=== PATIENT | female | born 1970 | race Caucasian/White ===

== ENCOUNTER 2024-10-28 12:20 | Inpatient (IN) | payer BC ==
[~2024-10-28] VITALS: Ht 157.5 cm; Wt 81.8 kg
[2024-10-28 13:06] LABS: BASOPHILS % (AUTO) 0.1 % (0-1); EOSINOPHILS % (AUTO) 0.2 % (0-6); HEMATOCRIT 47.1 % (35.0-45.0); HEMOGLOBIN 15.3 g/dl (12.0-16.0); LYMPHOCYTES # (AUTO) 0.3 X10'3 (1.1-4.8); LYMPHOCYTES % (AUTO) 3.7 % (21-51); MEAN CORPUSCULAR HEMOGLOBIN 30.1 PG (27.0-31.0); MEAN CORPUSCULAR HGB CONC 32.5 g/dL (33.0-36.5); MEAN CORPUSCULAR VOLUME 92.6 FL (78-98); MEAN PLATELET VOLUME 6.6 FL (7.4-10.4); MONOCYTES # (AUTO) 0.3 X10'3 (0-0.9); MONOCYTES % (AUTO) 4.2 % (2-12); NEUTROPHILS # (AUTO) 7.5 X10'3 (1.8-7.7); NEUTROPHILS % (AUTO) 91.8 % (42-75); PLATELET COUNT 233 X10'3 (140-440); RED BLOOD COUNT 5.08 X10'6 (4.20-5.60); RED CELL DISTRIBUTION WIDTH 13.7 % (11.5-14.5); WHITE BLOOD COUNT 8.2 X10'3 (4.5-11.0)
[2024-10-28 13:40] LABS: ALANINE AMINOTRANSFERASE 31 U/L (12-78); ALBUMIN 3.6 G/DL (3.4-5.0); ALBUMIN/GLOBULIN RATIO 0.8 (1.1-1.5); ALKALINE PHOSPHATASE 122 IU/L (46-116); ANION GAP 8 (8-16); ASPARTATE AMINO TRANSFERASE 27 U/L (10-37); BILIRUBIN,TOTAL 0.5 MG/DL (0.1-1.0); BLOOD UREA NITROGEN 16 MG/DL (7-18); BUN/CREATININE RATIO 16.3 (10.0-20.0); CALCIUM 9.1 MG/DL (8.5-10.1); CHLORIDE 107 MMOL/L (99-107); CREATININE 0.98 MG/DL (0.40-0.90); GLUCOSE 121 MG/DL (70-104); POTASSIUM 4.4 MMOL/L (3.5-5.1); PRO BRAIN NATRIURETIC PEPTIDE 154 PG/ML (0-125); SODIUM 142 MMOL/L (135-145); TOTAL CARBON DIOXIDE 27.2 MMOL/L (24-32); TOTAL PROTEIN 8.4 G/DL (6.4-8.2); eCRCL 51 ML/MIN; eGFR 59 ML/MIN
[2024-10-28] MEDS: CefTRIAXone 2gm/D5W 50ml BAG 50 ML IV ONE (13:48)
[2024-10-28] MEDS: normal saline 1000ML IV soln IV ONE ×2 (13:48→15:30)
[2024-10-28] MEDS: ondansetron/PF 4mg/2ml inj IV ONE (13:48)
[2024-10-28] MEDS: azithromycin/NS 500mg/250ml 250 ML IV ONE (14:19)
[2024-10-28] MEDS ORDERED: potassium Cl 40MEQ/1/2NS 520ml 520 ML IV PRN (15:30)
[2024-10-28] MEDS ORDERED: magnesium Cl slow-release 64mg tablet PO PRN (15:30)
[2024-10-28] MEDS ORDERED: morphine 2 MG/ML inj. syringe IV PRN (15:30)
[2024-10-28] MEDS ORDERED: magnesium hydroxide 30ml (MOM) UD suspension PO PRN (15:30)
[2024-10-28] MEDS ORDERED: potassium Cl 20 mEq SR tablet PO PRN (15:30)
[2024-10-28] MEDS: normal saline 1000ml 1,000 ML IV SCH (15:30)
[2024-10-28] MEDS ORDERED: magnesium sulf-water 2g/50mL 50 ML IV PRN (15:30)
[2024-10-28] MEDS ORDERED: magnesium sulf-water 4G/100mL 100 ML IV PRN (15:30)
[2024-10-28] MEDS ORDERED: ondansetron/PF 4mg/2ml inj IV PRN (15:30)
[2024-10-28 16:12] LABS: MAGNESIUM 1.9 MG/DL (1.5-2.4)
[2024-10-28] MEDS: methylPREDNISolone sod succ 125mg/2ml vial IV ONE (16:30)
[2024-10-28 16:33] LABS: HEMOGLOBIN A1C 5.7 % (4.5-6.2)
[2024-10-28 16:33] LABS: BILIRUBIN,URINE NEGATIVE (Neg); CLARITY,URINE SLIGHTLY CLOUDY (Clear); COLOR,URINE YELLOW (Yellow); GLUCOSE, URINE NEGATIVE (Neg); KETONES,URINE TRACE mg/dl (Neg); LEUKOCYTE ESTERASE ,URINE NEGATIVE (Neg); NITRITES, URINE NEGATIVE (Neg); OCCULT BLOOD,URINE NEGATIVE (Neg); PROTEIN,URINE NEGATIVE (Neg); UROBILINOGEN,URINE 0.2 E.U/dL (0.2-1.0)
[2024-10-28 16:42] LABS: UA COLLECTION TYPE VOIDED
[2024-10-28 16:48] LABS: BACTERIA,URINE 1+ /HPF (Neg); RBC,URINE NONE SEEN /HPF (0-2); SQUAMOUS EPITHELIAL CELL,UR FEW /LPF (FEW); WBC,URINE 0-4 /HPF (0-4)
[2024-10-28 17:18] LABS: D-DIMER 2.03 MG/L FEU (0-0.50)
[2024-10-28 17:40] LABS: THYROID STIMULATING HORMONE 0.78 ulU/ml (0.34-4.50)
[2024-10-28] MEDS: ipratropium/albuterol 3ml nebule NEB PRN (17:42)
[2024-10-28 17:45] VITALS: PULSE 123; RESP 16; O2SAT 97
[2024-10-28] MEDS: ipratropium/albuterol 3ml nebule NEB SCH (17:45)
[2024-10-28 17:50] VITALS: PULSE 130; RESP 20
[2024-10-28] MEDS ORDERED: iohexol 350MG/ML 100ml bottle IV ONE (18:22)
[2024-10-28] MEDS ORDERED: iohexol 350 MG/ML 50ML vial IV ONE (18:54)
[2024-10-28] MEDS: diltiazem 5mg/ml 5ml inj. IV ONE (19:45)
[2024-10-28 19:54] LABS: ABG BASE EXCESS -3.9 mmol/L (-2.0-3.0); ABG HCO3 20.5 mmol/L (21.0-28.0); ABG OXYGEN SATURATION 90.9 % (94.0-98.0); ABG PCO2 (T) 35.2 mmHg (32.0-45.0); ABG PH (T) 7.382 (7.350-7.450); ABG PO2 (T) 56.7 mmHg (83.0-108.0); ALLEN'S TEST POSITIVE; FCOHb 0.2 % (0.5-1.5); FHHb 9.1 % (0.0-5.0); FLOW 3 L/min; FMetHb 0.1 % (0.0-1.5); FO2Hb 90.6 % (94.0-98.0); MODE NASAL CANNULA; PATIENT TEMPERATURE 36.9; TOTAL HEMOGLOBIN 13.6 G/dl (12.0-16.0)
[2024-10-28 20:00] VITALS: BP_SYST 115; BP_SYST 117; BP_SYST 123; BP_DIAS 73; BP_DIAS 75; BP_DIAS 78; PULSE 78; PULSE 92; PULSE 96
[2024-10-28] MEDS: docusate sod 100mg capsule PO SCH (20:00)
[2024-10-28] MEDS: K and/or MAG REPLACEMENT MC SCH (20:00)
[2024-10-28] MEDS: diltiazem-NS 100mg/100ml 100 ML IV SCH (20:15)
[2024-10-28] MEDS: methylPREDNISolone sod succ/PF 40mg inj. IV SCH (21:21)
[2024-10-28] MEDS: heparin, porcine 5000 units/ml vial SQ SCH (21:21)
[2024-10-28 23:30] VITALS: BP 115/71; PULSE 110
[2024-10-29] VITALS (19 sets, daily range): BP systolic 87–165; BP diastolic 56–94; PULSE 81–128; RESP 16–22; TEMP 97.1–98.3; O2SAT 93–98
[2024-10-29] MEDS: acetaminophen 325mg tablet PO PRN (01:13)
[2024-10-29] MEDS ORDERED: TIOT4MIS5 INH (06:28)
[2024-10-29 07:13] LABS: BASOPHILS % (AUTO) 0.1 % (0-1); EOSINOPHILS % (AUTO) 0 % (0-6); HEMATOCRIT 36.9 % (35.0-45.0); HEMOGLOBIN 12.4 g/dl (12.0-16.0); LYMPHOCYTES # (AUTO) 0.5 X10'3 (1.1-4.8); LYMPHOCYTES % (AUTO) 4.7 % (21-51); MEAN CORPUSCULAR HEMOGLOBIN 30.3 PG (27.0-31.0); MEAN CORPUSCULAR HGB CONC 33.7 g/dL (33.0-36.5); MEAN CORPUSCULAR VOLUME 89.8 FL (78-98); MEAN PLATELET VOLUME 6.8 FL (7.4-10.4); MONOCYTES # (AUTO) 0.4 X10'3 (0-0.9); MONOCYTES % (AUTO) 3.5 % (2-12); NEUTROPHILS # (AUTO) 10.1 X10'3 (1.8-7.7); NEUTROPHILS % (AUTO) 91.7 % (42-75); PLATELET COUNT 197 X10'3 (140-440); RED CELL DISTRIBUTION WIDTH 13.2 % (11.5-14.5)
[2024-10-29 07:43] LABS: ALANINE AMINOTRANSFERASE 26 U/L (12-78); ALBUMIN 2.5 G/DL (3.4-5.0); ALBUMIN/GLOBULIN RATIO 0.7 (1.1-1.5); ALKALINE PHOSPHATASE 81 IU/L (46-116); ANION GAP 7 (8-16); ASPARTATE AMINO TRANSFERASE 23 U/L (10-37); BILIRUBIN,TOTAL 0.3 MG/DL (0.1-1.0); BLOOD UREA NITROGEN 10 MG/DL (7-18); BUN/CREATININE RATIO 11.5 (10.0-20.0); CHLORIDE 110 MMOL/L (99-107); CHOL/HDL RATIO 1.8 (0.00-4.99); CHOLESTEROL 132 MG/DL (0-200); CREATININE 0.87 MG/DL (0.40-0.90); GLUCOSE 149 MG/DL (70-104); HDL CHOLESTEROL 72 MG/DL (35-60); LDL CHOLESTEROL 55 MG/DL (50-100); MAGNESIUM 1.7 MG/DL (1.5-2.4); POTASSIUM 3.2 MMOL/L (3.5-5.1); SODIUM 141 MMOL/L (135-145); TOTAL CARBON DIOXIDE 24.2 MMOL/L (24-32); TOTAL PROTEIN 6.2 G/DL (6.4-8.2); TRIGLYCERIDES 44 MG/DL (20-135); eCRCL 58 ML/MIN; eGFR 68 ML/MIN
[2024-10-29] MEDS: azithromycin/NS 500mg/250ml 250 ML IV SCH (10:18)
[2024-10-29] MEDS: CefTRIAXone/D5W-Rocephin 1gm 50 ML IV SCH (10:18)
[2024-10-29] MEDS: HEPARIN DRIP DVT/PE -**PHARMACIST TO DOSE IV ONE (10:25)
[2024-10-29] MEDS: HEPARIN DRIP INITAL BOLUS --- DO NOT GIVE/ORDER MC ONE (10:40)
[2024-10-29] MEDS ORDERED: guaiFENesin/DM 10ml UD oral syrup PO PRN (10:40)
[2024-10-29] MEDS: MESSAGE TO NURSING IV ONE ×2 (11:05→20:58)
[2024-10-29 12:02] LABS: APTT 32 SECONDS (22-32)
[2024-10-29] MEDS: potassium Cl 20 mEq SR tablet PO PRN (12:49)
[2024-10-29] MEDS: heparin 25,000 UNIT/250ml bag 250 ML IV PRN (13:19)
[2024-10-29] MEDS: methylPREDNISolone sod succ/PF 40mg inj. IV SCH (14:29)
[2024-10-29] MEDS: LORazepam 0.5 MG tablet PO ONE (18:08)
[2024-10-29] MEDS: heparin 10,000 units/1 ML INJ IV PRN (20:54)
[2024-10-29] MEDS: diltiazem 30mg tablet PO ONE ×2 (21:38→22:41)
[2024-10-30] VITALS (12 sets, daily range): BP systolic 123–151; BP diastolic 76–92; PULSE 79–121; RESP 12–20; TEMP 96.9–98.2; O2SAT 91–94
[2024-10-30 03:39] LABS: BASOPHILS % (AUTO) 0.2 % (0-1); EOSINOPHILS % (AUTO) 0 % (0-6); HEMATOCRIT 35.1 % (35.0-45.0); HEMOGLOBIN 11.8 g/dl (12.0-16.0); LYMPHOCYTES # (AUTO) 0.6 X10'3 (1.1-4.8); LYMPHOCYTES % (AUTO) 4.7 % (21-51); MEAN CORPUSCULAR HGB CONC 33.7 g/dL (33.0-36.5); MEAN CORPUSCULAR VOLUME 89.1 FL (78-98); MEAN PLATELET VOLUME 6.7 FL (7.4-10.4); MONOCYTES # (AUTO) 0.7 X10'3 (0-0.9); MONOCYTES % (AUTO) 4.8 % (2-12); NEUTROPHILS # (AUTO) 12.4 X10'3 (1.8-7.7); NEUTROPHILS % (AUTO) 90.3 % (42-75); PLATELET COUNT 190 X10'3 (140-440); RED BLOOD COUNT 3.94 X10'6 (4.20-5.60); RED CELL DISTRIBUTION WIDTH 13.2 % (11.5-14.5); WHITE BLOOD COUNT 13.7 X10'3 (4.5-11.0)
[2024-10-30 03:57] LABS: ALANINE AMINOTRANSFERASE 30 U/L (12-78); ALBUMIN 2.5 G/DL (3.4-5.0); ALBUMIN/GLOBULIN RATIO 0.6 (1.1-1.5); ALKALINE PHOSPHATASE 81 IU/L (46-116); ANION GAP 6 (8-16); ASPARTATE AMINO TRANSFERASE 19 U/L (10-37); BILIRUBIN,TOTAL 0.2 MG/DL (0.1-1.0); BLOOD UREA NITROGEN 12 MG/DL (7-18); BUN/CREATININE RATIO 14.1 (10.0-20.0); CALCIUM 8.6 MG/DL (8.5-10.1); CHLORIDE 111 MMOL/L (99-107); CREATININE 0.85 MG/DL (0.40-0.90); GLUCOSE 163 MG/DL (70-104); MAGNESIUM 1.9 MG/DL (1.5-2.4); SODIUM 144 MMOL/L (135-145); TOTAL CARBON DIOXIDE 26.6 MMOL/L (24-32); TOTAL PROTEIN 6.5 G/DL (6.4-8.2); eCRCL 59 ML/MIN; eGFR 69 ML/MIN
[2024-10-30] MEDS: MESSAGE TO NURSING IV ONE ×4 (04:51→23:53)
[2024-10-30] MEDS: metoprolol succinate 25mg (24-HOUR) SR. Tablet PO SCH (10:49)
[2024-10-30] MEDS: levetiracetam 250mg tablet PO ONE (11:43)
[2024-10-30] MEDS ORDERED: methylPREDNISolone sod succ/PF 40mg inj. IV SCH (14:00)
[2024-10-30] MEDS: metoprolol tartrate 1mg/ml inj IV ONE (16:02)
[2024-10-30] MEDS: levetiracetam 250mg tablet PO SCH (19:27)
[2024-10-30] MEDS: methylPREDNISolone sod succ/PF 40mg inj. IV SCH (19:28)
[2024-10-31] VITALS (16 sets, daily range): BP systolic 132–170; BP diastolic 74–102; PULSE 63–94; RESP 15–20; TEMP 97–98.3; O2SAT 91–94
[2024-10-31 07:00] LABS: BASOPHILS % (AUTO) 0 % (0-1); EOSINOPHILS % (AUTO) 0 % (0-6); HEMATOCRIT 33.2 % (35.0-45.0); HEMOGLOBIN 11.2 g/dl (12.0-16.0); LYMPHOCYTES # (AUTO) 0.8 X10'3 (1.1-4.8); LYMPHOCYTES % (AUTO) 7.3 % (21-51); MEAN CORPUSCULAR HEMOGLOBIN 30.1 PG (27.0-31.0); MEAN CORPUSCULAR HGB CONC 33.8 g/dL (33.0-36.5); MEAN CORPUSCULAR VOLUME 88.9 FL (78-98); MONOCYTES # (AUTO) 0.6 X10'3 (0-0.9); MONOCYTES % (AUTO) 5.5 % (2-12); NEUTROPHILS # (AUTO) 9.9 X10'3 (1.8-7.7); NEUTROPHILS % (AUTO) 87.2 % (42-75); PLATELET COUNT 188 X10'3 (140-440); RED BLOOD COUNT 3.73 X10'6 (4.20-5.60); RED CELL DISTRIBUTION WIDTH 13.3 % (11.5-14.5); WHITE BLOOD COUNT 11.4 X10'3 (4.5-11.0)
[2024-10-31 07:24] LABS: ALANINE AMINOTRANSFERASE 40 U/L (12-78); ALBUMIN 2.3 G/DL (3.4-5.0); ALBUMIN/GLOBULIN RATIO 0.7 (1.1-1.5); ALKALINE PHOSPHATASE 72 IU/L (46-116); ANION GAP 9 (8-16); ASPARTATE AMINO TRANSFERASE 21 U/L (10-37); BILIRUBIN,TOTAL 0.3 MG/DL (0.1-1.0); BLOOD UREA NITROGEN 17 MG/DL (7-18); BUN/CREATININE RATIO 20.7 (10.0-20.0); CALCIUM 8.5 MG/DL (8.5-10.1); CHLORIDE 110 MMOL/L (99-107); CREATININE 0.82 MG/DL (0.40-0.90); GLUCOSE 146 MG/DL (70-104); MAGNESIUM 2.1 MG/DL (1.5-2.4); POTASSIUM 3.8 MMOL/L (3.5-5.1); SODIUM 145 MMOL/L (135-145); TOTAL CARBON DIOXIDE 25.8 MMOL/L (24-32); TOTAL PROTEIN 5.8 G/DL (6.4-8.2); eCRCL 61 ML/MIN; eGFR 72 ML/MIN
[2024-10-31] MEDS: TIOTROPIUM BROMIDE PO SCH (08:00)
[2024-10-31] MEDS: metoprolol succinate 25mg (24-HOUR) SR. Tablet PO SCH (08:13)
[2024-10-31] MEDS: MESSAGE TO NURSING IV ONE (08:28)
[2024-10-31] MEDS: amLODIPine 5mg tablet PO SCH (13:33)
[2024-10-31] MEDS: clindamycin 300mg/D5W 50mL 50 ML IV SCH (14:42)
[2024-10-31] MEDS: apixaban 5mg tablet PO SCH (14:58)
[2024-10-31] MEDS: mag hydrox/Alum hydrox/simeth 30ml oral suspension PO PRN (16:38)
[2024-10-31] MEDS: methylPREDNISolone sod succ/PF 40mg inj. IV SCH (20:15)
[2024-10-31] MEDS: salt irrigation nasal spray 45 ML SPRAY NS PRN (20:24)
[2024-11-01] VITALS (8 sets, daily range): BP systolic 134–164; BP diastolic 70–92; PULSE 69–101; RESP 14–20; TEMP 97.6–98.4; O2SAT 94–99
[2024-11-01 06:50] LABS: BASOPHILS % (AUTO) 0 % (0-1); EOSINOPHILS % (AUTO) 0 % (0-6); HEMATOCRIT 35.3 % (35.0-45.0); HEMOGLOBIN 11.9 g/dl (12.0-16.0); LYMPHOCYTES # (AUTO) 0.8 X10'3 (1.1-4.8); LYMPHOCYTES % (AUTO) 8.1 % (21-51); MEAN CORPUSCULAR HEMOGLOBIN 30.1 PG (27.0-31.0); MEAN CORPUSCULAR HGB CONC 33.7 g/dL (33.0-36.5); MEAN CORPUSCULAR VOLUME 89.5 FL (78-98); MEAN PLATELET VOLUME 6.9 FL (7.4-10.4); MONOCYTES # (AUTO) 0.7 X10'3 (0-0.9); MONOCYTES % (AUTO) 7.2 % (2-12); NEUTROPHILS # (AUTO) 8.3 X10'3 (1.8-7.7); NEUTROPHILS % (AUTO) 84.7 % (42-75); PLATELET COUNT 216 X10'3 (140-440); RED BLOOD COUNT 3.95 X10'6 (4.20-5.60); RED CELL DISTRIBUTION WIDTH 13.4 % (11.5-14.5); WHITE BLOOD COUNT 9.8 X10'3 (4.5-11.0)
[2024-11-01 06:54] LABS: ALANINE AMINOTRANSFERASE 38 U/L (12-78); ALBUMIN 2.5 G/DL (3.4-5.0); ALBUMIN/GLOBULIN RATIO 0.7 (1.1-1.5); ALKALINE PHOSPHATASE 70 IU/L (46-116); ANION GAP 8 (8-16); ASPARTATE AMINO TRANSFERASE 14 U/L (10-37); BILIRUBIN,TOTAL 0.4 MG/DL (0.1-1.0); BLOOD UREA NITROGEN 16 MG/DL (7-18); BUN/CREATININE RATIO 19.8 (10.0-20.0); CALCIUM 8.7 MG/DL (8.5-10.1); CHLORIDE 107 MMOL/L (99-107); CREATININE 0.81 MG/DL (0.40-0.90); GLUCOSE 149 MG/DL (70-104); MAGNESIUM 2.3 MG/DL (1.5-2.4); SODIUM 143 MMOL/L (135-145); TOTAL CARBON DIOXIDE 28.3 MMOL/L (24-32); eCRCL 62 ML/MIN; eGFR 73 ML/MIN
[2024-11-01] MEDS ORDERED: METO-395 PO (11:15)
[2024-11-01] MEDS ORDERED: CLIN-232 PO (11:15)
[2024-11-01] MEDS ORDERED: AMLO5TAB16 PO (11:15)
[2024-11-01] MEDS ORDERED: CEFD300C21 PO (11:15)
[2024-11-01] MEDS ORDERED: APIX5TAB3 PO (11:15)
[2024-11-01] MEDS ORDERED: LACT1CAP26 PO (11:15)
[2024-11-01] MEDS ORDERED: PRED10TA23 PO (11:15)
[2024-11-01] MEDS ORDERED: LEVE500T99 PO (11:15)
[2024-11-01 12:04] LABS: PLATELET ESTIMATE NORMAL; TOTAL CELLS COUNTED 100
== END 2024-11-01 13:07 | disposition home or self-care (01) | DRG 871 ==
LOC: ER 12:21 → ED HOLD 15:03 → PCU 3S 23:25
PROVIDERS: ADMIT Family Medicine; ATTEND Family Medicine
PROC: B3251ZZ Computerized Tomography (CT Scan) of Bilateral Common Carotid Arteries using Low Osmolar Contrast (ICD-10-PCS; 2024-10-28)
PROC: B32G1ZZ Computerized Tomography (CT Scan) of Bilateral Vertebral Arteries using Low Osmolar Contrast (ICD-10-PCS; 2024-10-28)
PROC: B32R1ZZ Computerized Tomography (CT Scan) of Intracranial Arteries using Low Osmolar Contrast (ICD-10-PCS; 2024-10-28)
PROC: B3281ZZ Computerized Tomography (CT Scan) of Bilateral Internal Carotid Arteries using Low Osmolar Contrast (ICD-10-PCS; 2024-10-28)
PROC: B32T1ZZ Computerized Tomography (CT Scan) of Left Pulmonary Artery using Low Osmolar Contrast (ICD-10-PCS; 2024-10-28)
PROC: B3201ZZ Computerized Tomography (CT Scan) of Thoracic Aorta using Low Osmolar Contrast (ICD-10-PCS; 2024-10-28)
PROC: B32S1ZZ Computerized Tomography (CT Scan) of Right Pulmonary Artery using Low Osmolar Contrast (ICD-10-PCS; 2024-10-28)
PROC: 4A00X4Z Measurement of Central Nervous Electrical Activity, External Approach (ICD-10-PCS; principal; 2024-10-29)
PROC: 5A09357 Assistance with Respiratory Ventilation, Less than 24 Consecutive Hours, Continuous Positive Airway Pressure (ICD-10-PCS; 2024-10-31)
PROC: 5A09357 Assistance with Respiratory Ventilation, Less than 24 Consecutive Hours, Continuous Positive Airway Pressure (ICD-10-PCS; 2024-11-01)
DX: A41.9 Sepsis, unspecified organism (principal); J69.0 Pneumonitis due to inhalation of food and vomit; J96.01 Acute respiratory failure with hypoxia; E87.20 Acidosis, unspecified; E86.0 Dehydration; G47.33 Obstructive sleep apnea (adult) (pediatric); Z20.822 Contact with and (suspected) exposure to COVID-19; Z66 Do not resuscitate; E87.6 Hypokalemia; I10 Essential (primary) hypertension; R56.9 Unspecified convulsions; Z88.2 Allergy status to sulfonamides
CPT/HCPCS: 36415; 36600; 70450; 70496; 70498; 70551; 71045; 71250; 71275; 80053; 80061; 81001; 82803; 83036; 83605; 83735; 83880; 84132; 84145; 84443; 84484; 85007; 85018; 85025; 85379; 85730; 87040; 87081; 87502; 87503; 87811; 93005; 93306; 93970; 94640; 94760; 95816; 96365; 96375; 97161; 99285; G0378; J0456; J0696; J1644; J2405; J2919; J3490; J7030; J7040; Q9967